=== PATIENT | male | born 1985 | race Caucasian/White ===

== ENCOUNTER 2023-06-24 13:43 | Emergency (ER) | payer OTHER, SELFPAY ==
[2023-06-24 13:44] VITALS: BP 131/88; PULSE 63; RESP 16; TEMP 36.1; O2SAT 97; BMI 28.7
[2023-06-24 13:58] VITALS: PULSE 75; RESP 20
[2023-06-24 14:00] VITALS: BP 136/68; PULSE 60; RESP 26; O2SAT 99
[2023-06-24 14:30] VITALS: BP 124/76; PULSE 58; RESP 24; O2SAT 98
--- NOTE | 2023-06-24 14:42 | EKG12_ITS ---
Test Reason : SYNCOPE Blood Pressure : / mmHG Vent. Rate : 048 BPM Atrial Rate : 048 BPM P-R Int : 174 ms QRS Dur : 104 ms QT Int : 414 ms P-R-T Axes : 014 065 030 degrees QTc Int : 369 ms Sinus bradycardia with sinus arrhythmia Otherwise normal ECG Confirmed by Bobo Veronica ([id number]), dictionary editor YEHUDA TONEY ([id number]) on 06/25/2023 1:45:50 PM Referred By: Confirmed By:Bobo Veronica
--- NOTE | 2023-06-24 14:51 | ED.RN ---
NO OLD EKG
[2023-06-24] MEDS: 0.9% Normal Saline (500mL Bag) 500 ML 1000 ML IV (14:58)
[2023-06-24 15:00] VITALS: BP 133/74; PULSE 63; RESP 16; O2SAT 99
--- NOTE | 2023-06-24 15:03 | RAD_ITS ---
STUDY: X-RAY CHEST REASON FOR EXAM: Male, 37 years old. Sob . Syncopal episode. TECHNIQUE: Single AP portable view of the chest. COMPARISON: None. FINDINGS: EKG electrodes are seen. The lungs are clear and expanded. There is no demonstrated pleural abnormality. Normal size heart. Normal mediastinum and ysabel. Normal visualized pulmonary arteries. Normal visualized aortic arch and descending thoracic aorta. Normal visualized thoracic spine. Normal visualized ribs, clavicles, and shoulders. There is no demonstrated abnormality of the visualized soft tissue structures of the upper abdomen. RAD/Chest 1 View (Portable) IMPRESSION: Normal x-ray examination of the chest. Electronically Signed: Jeff Garber MD at 15:11 EDT ,
[2023-06-24 15:04] LABS: Absolute Lymphocyte Count 1.42 X10^3/uL (0.83-4.51); Absolute Neutrophil Count 4.3 X10^3/uL (2.0-7.7); Basophil# 0.04 X10^3/uL; Basophil% 0.6 % (0-1); Eosinophil# 0.16 X10^3/uL; Eosinophils% 2.5 % (0-5); Hematocrit 38.4 % (40-54); Lymphocyte # 1.42 X10^3/ul (0.83-4.51); Lymphocyte % 22.6 % (19-41); Mean Corp Hgb Conc 33.9 g/dL (32-36); Mean Corpuscular Hgb 30.2 pg (27.0-32.0); Mean Corpuscular Volume 89.3 fL (80-94); Mean Platelet Vol. 10.3 fl (6.2-12.0); Monocyte# 0.36 X10^3/uL; Monocyte% 5.7 % (0-10); NRBC Flagged by Analyzer 0 % (0-5); Neutrophil % 68.4 % (47-70); Platelet Count 192 K/mm3 (150-450); RBC Distribution Width SD 42.9 fl (35.1-43.9); White Blood Count 6.3 K/mm3 (4.4-11.0)
--- NOTE | 2023-06-24 15:12 | EDS_ITS ---
HPI History of Present Illness Chief Complaint: Syncope Informant: patient Onset/Context/Timing Onset: Today Narrative Narrative: Patient presents after syncopal episode at work. He presents approximately 4 hours after the event. He states that he had gotten a text message about possibly having to put her cat down. He thinks he had a panic attack. He states he was breathing quickly and his heart was racing. He felt slightly sweaty. He tried to walk to the bathroom to splash some cold water on his face when he reportedly Bumping into the wall and had a brief syncopal episode. He denies having chest pain. [facility] Medical History (Updated 06/24/23 @ 15:[address] My Trujillo MD) Ventral incisional hernia without obstruction or gangrene Home Medications NK 03/03/20 [History Last Taken Unknown] Allergy/AdvReac Type Severity Reaction Status Date / Time No Known Allergies Allergy Verified 06/24/23 13:45 Family History Father Hypertension Surgical History S/P tonsillectomy Social History Smoking Status: Never smoker alcohol intake: current alcohol intake frequency: a few times a month ROS ROS ED Constitutional Constitutional ED: Denies chills or fever(s) Eyes Eyes: Denies discharge from eye(s) ENT ENT ED: Denies discharge from eye(s), rhinorrhea or sore throat Cardiovascular Cardiovascular: Denies chest pain or palpitations Respiratory/Chest Respiratory/Chest: Denies cough or dyspnea Gastrointestinal Gastrointestinal: Denies abdominal pain, nausea or vomiting Genitourinary Genitourinary ED: Denies dysuria Musculoskeletal Musculoskeletal: Denies back pain or extremity pain Integumentary Denies Abrasions or rash Neurologic Neurologic: Denies headache(s), paresthesias or weakness Psychiatric Psychiatric: Denies anxiety or depression Allergic/Immunologic Allergic/Immunologic ED: Denies lip swelling or urticaria EXAM Physical Exam Const Vital Signs: 06/24/23 13:44 06/24/23 13:54 06/24/23 13:58 Temperature 97.0 F L Temperature Source Temporal Pulse Rate 63 75 Respiratory Rate 16 20 H Respiratory Effort Normal Non-Labored Respiratory Pattern Normal Blood Pressure 131/88 H Blood Pressure Mean 102 Pulse Ox 97 Oxygen Delivery Method Room Air 06/24/23 14:00 06/24/23 14:30 06/24/23 15:00 Temperature Temperature Source Pulse Rate 60 58 L 63 Respiratory Rate 26 H 24 H 16 Respiratory Effort Respiratory Pattern Blood Pressure 136/68 H 124/76 H 133/74 H Blood Pressure Mean 86 90 93 Pulse Ox 99 98 99 Oxygen Delivery Method Room Air Positive well nourished and well developed General Appearance ED: well developed HEENT Reports moist mucous membranes Eyes EOMs intact bilaterally Chest Wall inspection of chest normal and palpation of chest normal Resp normal respiratory effort and clear to auscultation bilaterally Cardio regular rate and regular rhythm GI non-tender Palpation: soft Neuro oriented x3 and no sensory deficits noted Motor Exam: strength 5/5 throughout Psych mental status grossly normal Skin no rashes or lesions noted MDM MDM MDM Narrative Medical decision making narrative: 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 EKG obtained to evaluate for cardiac arrhythmia/ischemia. Labwork obtained to evaluate for leukocytosis, anemia, and electrolyte derangement. Chest x-ray obtained to evaluate for acute lung pathology, cardiac size, or mediastinal abnormality. Patient given 500 cc IV fluid bolus. History & Record Review Discussion w/independent historian: Patient and Family Lab Data Attestation: I reviewed the patient's lab results. Labs: Laboratory Results - last 24 hr 06/24/23 14:55 WBC 6.3 RBC 4.30 L Hgb 13.0 Hct 38.4 L MCV 89.3 MCH 30.2 MCHC 33.9 RDW Std Deviation 42.9 RDW Coeff of Demarcus 13.0 Plt Count 192 MPV 10.3 Immature Gran % (Auto) 0.200 Neut % (Auto) 68.4 Lymph % (Auto) 22.6 Kenton % (Auto) 5.7 Eos % (Auto) 2.5 Baso % (Auto) 0.6 Absolute Neuts (auto) 4.3 Absolute Lymphs (auto) 1.42 Nucleated RBC % 0 Sodium 138 Potassium 4.1 Chloride 107 Carbon Dioxide 30.0 Anion Gap 1 L BUN 11 Creatinine 0.94 Estim Creat Clear Calc 121.94 Est GFR (MDRD) Af Amer 116 Est GFR (MDRD) Non-Af 96 BUN/Creatinine Ratio 11.7 Glucose 100 Calcium 9.0 Troponin I High Sens 38 Radiography Chest X-Ray - ED: 1 View, Read by ED Physician, Normal, Heart, Lungs and Mediastinum Diagnostic Testing: Clinical Impression(s) from Imaging Studies Chest X-Ray 06/24/23 15:03 IMPRESSION: Normal x-ray examination of the chest. Electronically Signed: Jeff Garber MD at 15:11 EDT , EKG Initial EKG: Attestation: I personally reviewed and interpreted this EKG as follows: Interpretation: Sinus Bradycardia (Sinus bradycardia 40s beats per minute. No acute ischemia.) Treatment and Re-Evaluation :: CBC was white count 6.3 and hemoglobin 13.0. Differential unremarkable. Chemistry studies normal. Troponin is normal at 38 and this is 5 hours after his incident. EKG is sinus bradycardia with sinus arrhythmia. No acute ischemia. Chest x-ray per my interpretation reveals no evidence of acute finding. Radiology interpretation reviewed and agrees. Patient has had bradycardic rhythms in the upper 40s and 50s. He states this is normal for him. His blood pressure is adequate and he is asymptomatic with this. Patient did have a syncopal episode after having a panic attack. He has had no chest pain. I see no indication for acute cardiac cause of his symptoms. He will be discharged home with family and return instructions provided. He is comfortable with the plan. Discharge Plan Triage Chief Complaint: Syncope ED Provider: My Trujillo Dx/Rx/DC Orders Clinical Impression: Syncope, vasovagal Instructions: ED Fainting, Vagal Reaction Prescriptions: No Action NK Primary Care Provider: Leonard Tamez Referrals: Leonard Tamez MD [Primary Care Provider] - 1-2 Weeks Disposition Disposition: Home, Self Care
[2023-06-24 15:22] LABS: Anion Gap 1 (5-15); BUN 11 mg/dL (7-18); BUN/Creat Ratio 11.7 RATIO (10-20); Chloride 107 mmol/L (98-107); Creatinine, Serum 0.94 mg/dL (0.70-1.30); EST Glomerular Filtration Rate 96 mL/min (>60); Est Glom Filt Rate - Afr Amer 116 mL/min (>60); Estimated Creatinine Clearance 121.94 ml/min; Glucose 100 mg/dL (74-106); Potassium 4.1 mmol/L (3.5-5.1); Sodium Level 138 mmol/L (136-145); Troponin-I HS 38 pg/mL (3.0-78.0)
[2023-06-24 15:53] VITALS: BP 128/79; PULSE 52; RESP 16; TEMP 36.6; O2SAT 99
== END 2023-06-24 15:55 | disposition home or self-care (01) ==
PROVIDERS: Emergency Provider Emergency Medicine; PCP Family Medicine; Visit Provider Emergency Medicine
DX: R55 Syncope and collapse (principal)
CPT/HCPCS: 71045; 80048; 84484; 85025; 93005; 99283; J7040

== ENCOUNTER 2023-08-02 06:05 | Day surgery (SDC) | payer OTHER, SELFPAY ==
--- NOTE | 2023-08-02 06:14 | HP.PCM_ITS ---
History and Physical Date of Admission: 08/02/23 isit Reasons: Hernia Chief Complaint: ventral hernia Dozer Operator Required: No Is patient in pain?: No Allergies No Known Allergies Allergy (Verified 07/29/23 14:12) Medications NK 03/03/20 [History Confirmed 07/29/23] [facility] Medical History (Updated 07/29/23 @ 14:12 by Kim Archer) Abdominal pain Ventral incisional hernia without obstruction or gangrene Surgical History S/P tonsillectomy Family History Father Hypertension Heart diseaseGrandmother Colon cancer Diabetes High cholesterolGrandfather Cancer Prostate/Thyroid High cholesterol CVA (cerebral vascular accident) Social History (Updated 07/29/23 @ 14:10 by Kim Archer) Smoking Status: Never smoker alcohol intake: current alcohol intake frequency: a few times a month substance use type: does not use HPI HPI HPI: 37-year-old gentleman is referred by Dr Leonard Tamez for surgical consultation regarding a ventral hernia and a written compromise surgical consult and recommendations will return to him. I have previously provided counseling on March 03, 2020. Just inferior to the xiphoid process I felt what I thought was a ventral hernia without obstruction. Charlotte that this likely represented a defect in the linea alba. We discussed repair at that time. Doing cardio exercise with minimal dietary change she has lost 50 pounds in weight. 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 He otherwise states that he enjoys a good quality of life. Most of the exercises he does his cardio. He does do push-ups. ROS General General: No weight change, appetite, fatigue, colon cancer, breast cancer or weakness HEENT HEENT: No difficulty swallowing, eye injury, eye surgery, swollen glands or hoarseness Endo Endocrine: No thyroid disease, diabetes mellitus, thyroid cancer, Hair loss, heat intolerance or cold intolerance Skin Skin: No rash or changing moles Breast Breast: No left breast lump, right breast lump, nipple discharge, breast pain, abnormal mammogram, abnormal US or breast enlargement Musc Musculoskeletal: No back problems, arthritis, rheumatoid arthritis, gout or joint pain Cardio Cardiovascular: No murmur, pacemaker, heart disease, atrial fibrillation, high blood pressure, heart attack, heart stent, palpitations, shortness of breat with exertion or chest pain Psych Psychiatric: No depression, anxiety or hearing voices Resp Respiratory: No shortness of breath, No sleep apnea, No cough, No COPD, No asthma, No emphysema and No wheezing Gastro Gastrointestinal: Yes abdominal pain, No nausea or vomiting, No diarrhea, No constipation, No blood in stool, No acid reflux, No hemorrhoids, No ulcers, No gallbladder problem and No black,tarry stools Efren Hematologic: No blood thinners, No blood disorders, No bleeding, No anemia and No blood clots Neuro Neurologic: No system reviewed and no additional complaints, except as documented, No as per HPI, No abnormal gait, No abnormal hearing, No abnormal movements, No abnormal speech, No behavioral changes, No burning sensations, No confusion, No convulsions, No disequilibrium, No dizziness, No localized weakness, No frequent falls, No headache(s), No lack of coordination, No loss of vision, No memory loss, No numbness, No other visual disturbances, No radicular pain, No restless legs, No sensory deficit, No syncope, No tingling, No tremor(s), No weakness and No other Exam Const General: cooperative, comfortable and no acute distress Nutritional Appearance: average body habitus [facility] Head: normal to inspection Eyes General: appearance normal, both eyes and all related structures Neck Neck: normal visual inspection Chest Chest palpation & inspection: normal inspection of the chest Resp Effort & Inspection: normal respiratory effort Auscultation: clear to auscultation bilaterally Cardio Rate: regular rate Rhythm: regular rhythm GI Other: Soft, nontender, in the epigastric area there is clearly a soft tissue mass with some effort is reducible. Very slightly tender. No erythema. No incision present Musc Cervical Spine: normal cervical lordosis Skin General: no rashes or lesions noted Neuro General: patient alert, patient awake and patient oriented x3 Extrem General: no calf tenderness Psych Appearance: grossly normal Assessment and Plan Assessment and Plan (1) Hernia: Plan Persistent epigastric ventral hernia. This does not appear to be related to any previous incisions. Likely a defect of the linea alba. I propose for him a direct repair much like what I had proposed previously. Hopefully will be able to utilize a Ventralex mesh type product. I have discussed with him however that this will require time for healing and resolution. We did discuss potential risk of recurrence. He is aware of technique, benefit, risk, alternatives. I very much want to try to get this retrorectus. He has had an opportunity to ask and have questions answered we will schedule procedure at his discretion. I appreciate the opportunity of assisting with the surgical care. Copy: Dr Leonard Akins M.D., F.A.C.S I have examined the patient and the H&P has been reviewed. There are no clinical changes since date of exam. Raúl kAins M.D., F.A.C.S.
--- NOTE | 2023-08-02 06:14 | DCINST_ITS ---
Discharge Instructions Procedure General Surgery Diet Discharge Diet: Light diet - advance as tolerated (if you have questions about your diet instructions, please talk to you doctor.) Activity Discharge Activity: May Not Drive (for 3-5 days or while taking narcotic pain medicine.) May shower in (days): 1 Lifting Restrictions: 10 pounds Dressing / Incision Call your doctor if your incision/area has: Continuous Slow Oozing, Sudden Increased Bleeding, Increased Pain/ Swelling, Increased Redness and Foul Smelling Discharge Call your doctor if you observe: Fever of 101 or Higher Suture Line Care: Avoid Pulling/Pushing and Avoid Pinching/Bending Additional Dressing/Incision Instructions:: Change or remove dressing in 4 days. Leave steri-strips in place for 1 week. Follow Up Care Please Follow Up With: Raúl Akins MD When: Call [phone] to make an appointment to be seen in about 10 days. Test Results: Test results from this visit will be discussed in further detail at your follow- up appointment, if applicable. Discharge Plan Admission Attending Provider: Raúl Akins Primary Care Provider: Leonard Tamez Discharge Orders/Prescriptions Prescriptions: No Action NK Referrals / Follow Up: Leonard Tamez MD [Primary Care Provider] - Disposition Disposition (needs filled in before D/C Order can be placed): Home, Self Care
--- NOTE | 2023-08-02 06:30 | EKG12_ITS ---
Test Reason : PRE OP Blood Pressure : / mmHG Vent. Rate : 059 BPM Atrial Rate : 059 BPM P-R Int : 156 ms QRS Dur : 104 ms QT Int : 400 ms P-R-T Axes : 004 064 022 degrees QTc Int : 396 ms Sinus bradycardia Minimal voltage criteria for LVH, may be normal variant ( Sokolow-Winston ) ST elevation, consider early repolarization Borderline ECG When compared with ECG of 24-JUN-2023 13:51, No significant change was found Confirmed by LUZ MARIA OLGUIN, STARR ([id number]), editorial assistant YEHUDA TONEY ([id number]) on 08/05/2023 11:53:00 AM Referred By: Raúl Akins Confirmed By:STARR LOERA MD
[2023-08-02] MEDS: Lactated Ringers 1,000 ML 15 ML IV (06:31)
[2023-08-02 06:38] LABS: Hematocrit 40.2 % (40-54); Hemoglobin 13.3 g/dL (13.0-16.5); Mean Corp Hgb Conc 33.1 g/dL (32-36); Mean Corpuscular Hgb 29.8 pg (27.0-32.0); Mean Corpuscular Volume 89.9 fL (80-94); Mean Platelet Vol. 10.1 fl (6.2-12.0); Platelet Count 210 K/mm3 (150-450); RBC Distribution Width CV 12.7 % (11.6-14.6); RBC Distribution Width SD 42.2 fl (35.1-43.9); Red Blood Count 4.47 M/mm3 (4.6-6.2)
[2023-08-02 06:48] VITALS: BP 116/92; PULSE 64; RESP 16; TEMP 36.9; O2SAT 99; BMI 21.1
[2023-08-02 06:57] LABS: Anion Gap 4 (5-15); BUN 21 mg/dL (7-18); BUN/Creat Ratio 22.3 RATIO (10-20); Calcium,Total 9.2 mg/dL (8.5-10.1); Chloride 107 mmol/L (98-107); Creatinine, Serum 0.94 mg/dL (0.70-1.30); EST Glomerular Filtration Rate 95 mL/min (>60); Est Glom Filt Rate - Afr Amer 115 mL/min (>60); Estimated Creatinine Clearance 98.92 ml/min; Glucose 111 mg/dL (74-106); Potassium 3.9 mmol/L (3.5-5.1); Sodium Level 136 mmol/L (136-145)
[2023-08-02] MEDS: Cefazolin 2 GM in 0.9% Normal Saline (100mL Bag) 100 ML IV (07:26)
[2023-08-02] MEDS: Bupivacaine Mpf 0.5% 30 ML VIAL (07:41)
--- NOTE | 2023-08-02 08:03 | PCM.OPRPT ---
Report of Operation Date of Procedure: 08/02/23 Pre-Operative Diagnosis: Epigastric ventral hernia Post-Operative Diagnosis: 2.5 cm diameter epigastric ventral hernia Surgery/Procedure Performed:: Ventral herniorrhaphy with Ventralex ST hernia patch 6.4 cm diameter. Reference [id number], Lot [id number], expiry date 11/26/2024 Description of Surgical Findings:: Timeout informed consent was obtained. 37-year-old gentleman was taken to the operating placed on the table underwent general anesthesia. Ancef 2 g were given intravenously. The abdomen sterilely prepped and draped. 0.5% Marcaine was used as a local anesthetic. A total of 30 cc was used. Transverse incision was made in the epigastric area sharp dissection carried down through subcu tissue the linea alba defect was rapidly identified preperitoneal tissues were dissected free and then a retrorectus space was created the defect measured 2.5 cm in diameter. A 6.[address] mesh was carefully inserted and it nicely unfurled in the retrorectus space. The mesh was secured with interrupted 0 Nurolon and then the fascia was approximated transversely with simple sutures of 0 Nurolon with simple sutures catching the anterior surface of the mesh. Excellent placement and securement was achieved. Subcutaneous tissues approximate interrupted 3-0 Vicryl. Skin edges approximated running subcuticular 4-0 Monocryl. Steri-Strips Telfa OpSite dressings applied. Sponge and instrument and needle counts were reported to the surgeon to be correct. Specimens none. Drains none. Blood loss minimal. The patient was taken to the recovery area in satisfied condition without apparent complication Raúl Akins M.D., F.A.C.S. Surgeon: Raúl Akins Type of Anesthesia: General and Local Anesthesiologist: Alli Davis
[2023-08-02 08:15] VITALS: BP 116/92; BP 137/94; PULSE 64; RESP 16; TEMP 36.4; O2SAT 98
[2023-08-02 08:20] VITALS: BP 116/92; BP 122/56; PULSE 58; RESP 16; O2SAT 98
[2023-08-02 08:25] VITALS: BP 116/92; BP 118/82; PULSE 59; RESP 18; O2SAT 98
[2023-08-02 08:30] VITALS: BP 116/92; BP 118/82; PULSE 60; RESP 18; TEMP 36.4; O2SAT 99
[2023-08-02] MEDS: HYDROcodone Bitartrate/Apap 5/325 Tablet PO (08:57)
[2023-08-02 09:06] VITALS: BP 116/92
== END 2023-08-02 09:13 | disposition home or self-care (01) ==
LOC: SDC 06:05 → AC 06:06
PROVIDERS: PCP Family Medicine; Referring Provider Surgery; Visit Provider Surgery
PROC: (CPT 49591; principal; 2023-08-02 07:15)
DX: K43.9 Ventral hernia without obstruction or gangrene (principal); F12.90 Cannabis use, unspecified, uncomplicated; Z90.89 Acquired absence of other organs
CPT/HCPCS: 49591; 00752; 80048; 85027; 93005; C1781; J7120; J2405